=== PATIENT | female | born 1960 | race African-American/Black ===

== ENCOUNTER → 2017-12-08 | Outpatient (CLI) | payer BC ==
[2017-04-14 16:14] VITALS: BMI 30.1
[~2017-12-08] MED LIST: ADAL40PE4 SQ; ASCO-182 PO; ASPI-764 PO; CEPH500C24 PO; CHOL10005 PO; ERGO500037 PO; FERR-53 PO; FLU45SYR25 IM ONLY; FLU60SYR30 IM ONLY; FOLI-68 PO; FOLI0.4T56 PO; GLUC-134 PO; GLUC100026 PO; HYDR200T42 PO; IRON1TAB PO; LEFL20TA6 PO; MEDR2.5T29 PO; MELO-205 PO; MELO-207 PO; MELO7.5O3 PO; MULT-865 PO
== END ==
LOC: LAB 14:13
PROVIDERS: ATTEND Emergency Medicine
DX: R35.1 Nocturia (principal)
CPT/HCPCS: 81001

== ENCOUNTER → 2017-12-09 | Outpatient (CLI) | payer BC ==
[2017-04-14 16:14] VITALS: BMI 30.1
== END ==
LOC: LAB 13:18
PROVIDERS: ATTEND Emergency Medicine
DX: R82.90 Unspecified abnormal findings in urine (principal)
CPT/HCPCS: 36415; 82040; 82247; 82248; 84075; 84155; 84450; 84460

== ENCOUNTER → 2017-12-22 | Outpatient (CLI) | payer BC ==
[2017-04-14 16:14] VITALS: BMI 30.1
== END ==
LOC: LAB 07:48
PROVIDERS: ATTEND Emergency Medicine
DX: R82.90 Unspecified abnormal findings in urine (principal)
CPT/HCPCS: 81001

== ENCOUNTER → 2018-01-16 | Outpatient (CLI) | payer BC ==
[2017-04-14 16:14] VITALS: BMI 30.1
== END ==
LOC: RESP 20:50
PROVIDERS: ATTEND Emergency Medicine
DX: G47.33 Obstructive sleep apnea (adult) (pediatric) (principal); G47.36 Sleep related hypoventilation in conditions classified elsewhere; E66.3 Overweight

== ENCOUNTER → 2018-02-25 | Outpatient (CLI) | payer BC ==
[2017-04-14 16:14] VITALS: BMI 30.1
--- NOTE | 2018-02-26 08:41 | RADIOLOGY IMAGING REPORT ---
FACILITY: [facility] - [place] PATIENT NAME: TERRA LANE : [id number] MR: [id number] V: [id number] EXAM DATE: [id number] ORDERING PHYSICIAN: EAMON BENDER TECHNOLOGIST: [place] PROCEDURE:BILATERAL DIGITAL SCREENING MAMMOGRAM WITH CAD ASSISTED INTERPRETATION & 3D TOMOSYNTHESIS COMPARISON:Prior mammograms dated 02/19/16, 01/25/15, 01/24/14, 12/13/12, 12/10/11, 04/02/11 INDICATIONS:screening FINDINGS: Mildly heterogeneous fibroglandular tissue is seen throughout the breasts. The parenchymal pattern has remained stable allowing for difference in mammographic technique & patient positioning. There is no evidence of malignant appearing mass, malignant appearing calcification or other secondary sign of malignancy in either breast. DIAGNOSTIC CATEGORY 1--NEGATIVE. RECOMMENDATIONS: ROUTINE MAMMOGRAM AND CLINICAL EVALUATION. IMPRESSION: BIRADS 1: Negative No significant abnormality is seen. Dictated by: Shakira Vargas M.D. on 02/25/2018 at 16:43 Transcribed by: LAVELL on 02/26/2018 at 7:12 Approved by: Shakira Vargas M.D. on 02/26/2018 at 8:40 [facility]
== END ==
LOC: MAMO 01:18
PROVIDERS: ATTEND Emergency Medicine
DX: Z12.31 Encounter for screening mammogram for malignant neoplasm of breast (principal)
CPT/HCPCS: 77063; 77067

== ENCOUNTER → 2018-03-09 | Outpatient (CLI) | payer BC ==
[2017-04-14 16:14] VITALS: BMI 30.1
[2018-03-09 08:38] LABS: PLATELET COUNT, AUTOMATED 462 K/uL (150-450)
== END ==
LOC: LAB 07:54
PROVIDERS: ATTEND Physician Assistant Medical
DX: R76.0 Raised antibody titer (principal); M05.89 Other rheumatoid arthritis with rheumatoid factor of multiple sites; Z79.899 Other long term (current) drug therapy
CPT/HCPCS: 36415; 82040; 82247; 82310; 82374; 82435; 82565; 82784; 82947; 83516; 84075; 84132; 84155; 84165; 84295; 84450; 84460; 84520; 85025; 85651; 86235; 86255; 86480; 86803; 87340

== ENCOUNTER → 2018-03-27 | Outpatient (CLI) | payer BC ==
[2017-04-14 16:14] VITALS: BMI 30.1
== END ==
LOC: RESP 19:45
PROVIDERS: ATTEND Emergency Medicine
DX: G47.33 Obstructive sleep apnea (adult) (pediatric) (principal); G47.36 Sleep related hypoventilation in conditions classified elsewhere; E66.3 Overweight

== ENCOUNTER → 2018-08-23 | Outpatient (CLI) | payer BC ==
[2017-04-14 16:14] VITALS: BMI 30.1
[~2018-08-23] MED LIST changes: +CYAN500T38 PO; +FLU60SYR36 IM; +FLU60VIA41 IM; +PRED-420 PO
== END ==
LOC: LAB 07:55
PROVIDERS: ATTEND Internal Medicine Rheumatology
DX: R76.0 Raised antibody titer (principal); Z79.899 Other long term (current) drug therapy
CPT/HCPCS: 36415; 86038; 86039; 86160; 86225; 86235

== ENCOUNTER 2018-09-07 15:20 | Outpatient (RCR) | payer BC ==
[2017-04-14 16:14] VITALS: BMI 30.1
[2018-07-08 10:34] VITALS: BP 132/89
[2018-07-08] MEDS: NS(*) 0.9% 100 ML BAG 100 ML IVPB PRN (10:40)
[2018-07-08 11:49] VITALS: BP 129/85
[2018-07-22 14:56] VITALS: BP 156/110
[2018-07-22] MEDS: NS(*) 0.9% 100 ML BAG 100 ML IVPB PRN (15:04)
[2018-07-22 16:32] VITALS: BP 139/97
[2018-08-05 14:55] VITALS: BP 156/100
[2018-08-05] MEDS: NS(*) 0.9% 100 ML BAG 100 ML IVPB PRN (15:23)
[~2018-09-07 15:20] MED LIST changes: +ABATACEPT 250 MG SDV 750 MG in NS(*) 0.9% 100 ML BAG 100 ML IVPB ONE; +DEXTROSE 5%(*) 100 ML BAG 100 ML IVPB PRN; +LIDOCAINE/SOD BICARB 8.4% SYR ID PRN
[2018-09-07 15:26] VITALS: BP 145/99
[2018-09-07] MEDS ORDERED: ABATACEPT 250 MG SDV 750 MG in NS(*) 0.9% 100 ML BAG 100 ML IVPB ONE (16:00)
== END 2018-10-06 ==
LOC: SPU 15:20
PROVIDERS: ATTEND Physician Assistant Medical
DX: M05.79 Rheumatoid arthritis with rheumatoid factor of multiple sites without organ or systems involvement (principal)
CPT/HCPCS: 96365; J0129; J7050

== ENCOUNTER 2019-01-04 14:41 | Outpatient (RCR) | payer BC ==
[2017-04-14 16:14] VITALS: BMI 30.1
[2018-10-08 15:43] VITALS: BP 124/73
[2018-11-05 15:50] VITALS: BP 125/77
[2018-11-05 16:31] VITALS: BP 130/78
[2018-12-06 15:14] VITALS: BP 143/97
[2018-12-06] MEDS: NS(*) 0.9% 100 ML BAG 100 ML IVPB PRN (15:50)
[~2019-01-04 14:41] MED LIST changes: +ALTEPLASE RECOMB 2 MG VIAL IVP PRN; +HEPARIN FLSH (PORT) 500 UN/5ML IVP PRN; +NS(*) 0.9% 500 ML BAG 500 ML IV PRN; +WATER FOR INJ,STERILE 20 ML IVP PRN
[2019-01-04 15:03] VITALS: BP 146/95
[2019-01-04] MEDS ORDERED: ABATACEPT 250 MG SDV 750 MG in NS(*) 0.9% 100 ML BAG 100 ML IVPB ONE (15:10)
[2019-01-04] MEDS: NS(*) 0.9% 100 ML BAG 100 ML IVPB PRN (15:28)
[2019-01-04 16:02] VITALS: BP 124/99
== END 2019-01-05 ==
LOC: SPU 14:41
PROVIDERS: ATTEND Physician Assistant Medical
DX: M05.79 Rheumatoid arthritis with rheumatoid factor of multiple sites without organ or systems involvement (principal)
CPT/HCPCS: 96365; J0129; J7050

== ENCOUNTER → 2019-01-07 | Outpatient (CLI) | payer BC ==
[2017-04-14 16:14] VITALS: BMI 30.1
[~2019-01-07] MED LIST changes: -ABATACEPT 250 MG SDV 750 MG in NS(*) 0.9% 100 ML BAG 100 ML IVPB ONE; -ALTEPLASE RECOMB 2 MG VIAL IVP PRN; -DEXTROSE 5%(*) 100 ML BAG 100 ML IVPB PRN; -HEPARIN FLSH (PORT) 500 UN/5ML IVP PRN; -LIDOCAINE/SOD BICARB 8.4% SYR ID PRN; -NS(*) 0.9% 500 ML BAG 500 ML IV PRN; -WATER FOR INJ,STERILE 20 ML IVP PRN
[2019-01-07 08:35] LABS: PLATELET COUNT, AUTOMATED 517 K/uL (150-450)
== END ==
LOC: LAB 07:52
PROVIDERS: ATTEND Internal Medicine Rheumatology
DX: M05.79 Rheumatoid arthritis with rheumatoid factor of multiple sites without organ or systems involvement (principal); Z79.899 Other long term (current) drug therapy
CPT/HCPCS: 36415; 82565; 84460; 85025; 85651

== ENCOUNTER → 2019-03-15 | Outpatient (CLI) | payer BC ==
[2017-04-14 16:14] VITALS: BMI 30.1
--- NOTE | 2019-03-16 16:00 | RADIOLOGY IMAGING REPORT ---
FACILITY: [facility] PATIENT NAME: TERRA LANE : [id number] MR: [id number] V: [id number] EXAM DATE: ORDERING PHYSICIAN: EAMON BENDER TECHNOLOGIST: [place] PROCEDURE: BILATERAL DIGITAL SCREENING MAMMOGRAM WITH CAD ASSISTED INTERPRETATION & 3D TOMOSYNTHESIS REASON FOR STUDY: Screening. FAMILY HISTORY OF BREAST CANCER: BREAST PROCEDURES/TREATMENTS: COMPARISON: Prior mammogram 02/25/2018. VIEWS OBTAINED: 2D & 3D full field CC & MLO. BREAST DENSITY: The breast tissue demonstrates scattered fibroglandular tissue elements. MAMMOGRAM FINDINGS: There is no suspicious mass, calcification, or architectural distortion. IMPRESSION: BIRADS 1: Negative. No mammographic evidence for malignancy. DIAGNOSTIC CATEGORY 1--NEGATIVE. RECOMMENDATIONS: ROUTINE MAMMOGRAM AND CLINICAL EVALUATION IN 1 YEAR. Dictated by: Davis Ga M.D. on 03/16/2019 at 13:31 Transcribed by: EARNEST on 03/16/2019 at 14:59 Approved by: Davis Ga M.D. on 03/16/2019 at 15:59 [facility]
== END ==
LOC: MAMO 00:27
PROVIDERS: ATTEND Emergency Medicine
DX: Z12.31 Encounter for screening mammogram for malignant neoplasm of breast (principal)
CPT/HCPCS: 77063; 77067

== ENCOUNTER 2019-04-08 14:58 | Outpatient (RCR) | payer BC ==
[2017-04-14 16:14] VITALS: BMI 30.1
[2019-02-01 14:48] VITALS: BP 145/100
[2019-02-01] MEDS: NS(*) 0.9% 100 ML BAG 100 ML IVPB PRN (15:20)
[2019-02-01 16:02] VITALS: BP 149/79
[2019-03-08 15:03] VITALS: BP 128/87
[2019-03-08] MEDS: NS(*) 0.9% 100 ML BAG 100 ML IVPB PRN (15:37)
[2019-03-08 16:15] VITALS: BP 137/92
[~2019-04-08 14:58] MED LIST changes: -ABAT125S SQ; +ABATACEPT 250 MG SDV 750 MG in NS(*) 0.9% 100 ML BAG 100 ML IVPB ONE; -CYAN500T38 PO; +CYAN500T39 PO; +DEXTROSE 5%(*) 100 ML BAG 100 ML IVPB PRN; -HYDR200T77 PO; +LIDOCAINE/SOD BICARB 8.4% SYR ID PRN
[2019-04-08 15:16] VITALS: BP 114/83
[2019-04-08] MEDS: NS(*) 0.9% 100 ML BAG 100 ML IVPB PRN (15:45)
[2019-04-08] MEDS ORDERED: ABATACEPT 250 MG SDV 750 MG in NS(*) 0.9% 100 ML BAG 100 ML IVPB ONE (16:00)
[2019-04-08 16:54] VITALS: BP 122/80
[2019-04-11] MEDS ORDERED: HYDR200T77 PO (16:28)
[2019-04-11] MEDS ORDERED: ABAT125S SQ (16:28)
== END 2019-05-01 ==
LOC: SPU 14:58
PROVIDERS: ATTEND Physician Assistant Medical
DX: M05.79 Rheumatoid arthritis with rheumatoid factor of multiple sites without organ or systems involvement (principal)
CPT/HCPCS: 96365; J0129; J7050

== ENCOUNTER → 2019-04-08 | Outpatient (CLI) | payer BC ==
[2017-04-14 16:14] VITALS: BMI 30.1
[~2019-04-08] MED LIST changes: +ABAT125S SQ; +HYDR200T77 PO
== END ==
LOC: LAB 07:41
PROVIDERS: ATTEND Internal Medicine Rheumatology
DX: M32.19 Other organ or system involvement in systemic lupus erythematosus (principal); M05.79 Rheumatoid arthritis with rheumatoid factor of multiple sites without organ or systems involvement; Z79.899 Other long term (current) drug therapy
CPT/HCPCS: 36415; 81001; 82565; 84460; 85027; 85651

== ENCOUNTER → 2019-05-02 | Outpatient (CLI) | payer BC ==
[2017-04-14 16:14] VITALS: BMI 30.1
[~2019-05-02] MED LIST changes: +ABAT125S SQ; -ABATACEPT 250 MG SDV 750 MG in NS(*) 0.9% 100 ML BAG 100 ML IVPB ONE; -DEXTROSE 5%(*) 100 ML BAG 100 ML IVPB PRN; +HYDR200T77 PO; -LIDOCAINE/SOD BICARB 8.4% SYR ID PRN
[2019-05-02 08:26] LABS: PLATELET COUNT, AUTOMATED 378 K/uL (150-450)
--- NOTE | 2019-05-02 08:30 | EKG ---
FACILITY: [facility] - [place] PATIENT NAME: TERRA LANE : [id number] MR: [id number] V: [id number] EXAM DATE: ORDERING PHYSICIAN: GHASSAN CAN TECHNOLOGIST: MERT Walters Reason : PREOP-FOOT Blood Pressure : / mmHG Vent. Rate : 091 BPM Atrial Rate : 091 BPM P-R Int : 128 ms QRS Dur : 068 ms QT Int : 358 ms P-R-T Axes : 063 081 066 degrees QTc Int : 440 ms Normal sinus rhythm Possible Left atrial enlargement Borderline ECG No previous ECGs available Confirmed by GHASSAN WOOD ([id number]) on 05/03/2019 6:22:57 AM Referred By: Confirmed By:GHASSAN WOOD
--- NOTE | 2019-05-02 09:35 | RADIOLOGY IMAGING REPORT ---
FACILITY: [facility] - [place] PATIENT NAME: Joan Quiñones : 1960 MR: [id number] V: [id number] EXAM DATE: ORDERING PHYSICIAN: GHASSAN CAN TECHNOLOGIST: Location: [facility] Patient: Joan Quiñones : 1960 Visit/Account:[id number] Date of Sevice: 05/02/2019 CERVICAL SPINE MIN 4 VIEW Indication: Arthritis Comparison: Cervical spine radiograph 03/13/2017 Findings: Vertebral bodies and posterior elements are intact. Disc spaces and facets are normal. Al ignment is maintained. Flexion and extension views demonstrate no change in position. IMPRESSION: Normal cervical spine radiograph. Report Dictated By: Davis Ga at 05/02/2019 9:28 AM Report E-Signed By: Davis Ga at 05/02/2019 9:29 AM WSN:[id number]
== END ==
LOC: LAB 08:14
PROVIDERS: ATTEND Anesthesiology
DX: Z01.812 Encounter for preprocedural laboratory examination (principal); Z01.810 Encounter for preprocedural cardiovascular examination; M43.6 Torticollis; M19.071 Primary osteoarthritis, right ankle and foot
CPT/HCPCS: 72050; 82040; 82247; 82310; 82374; 82435; 82565; 82947; 84075; 84132; 84155; 84295; 84450; 84460; 84520; 85025; 93005

== ENCOUNTER → 2019-06-22 | Outpatient (REF) | payer BC ==
[2017-04-14 16:14] VITALS: BMI 30.1
== END ==
LOC: ZZSENDIN 12:00
PROVIDERS: ATTEND Orthopaedic Surgery
DX: M06.342 Rheumatoid nodule, left hand (principal); M06.322 Rheumatoid nodule, left elbow
CPT/HCPCS: 88305